=== PATIENT | female | born 1990 | race Caucasian/White ===

== ENCOUNTER 2025-08-15 17:19 | Emergency (ER) | payer OTHER ==
[~2025-08-15] VITALS: Ht 172.7 cm; Wt 102.0 kg
[2025-08-15 17:28] VITALS: O2SAT 99
[2025-08-15] MEDS: ONDANSETRON HCL 4MG/2ML INJ IV ONE (18:00)
[2025-08-15] MEDS: SODIUM CHLORIDE 0.9% 1,000 ML IV ONE ×2 (18:00→21:07)
[2025-08-15] MEDS: ACETAMINOPHEN 500MG TABLET PO ONE (18:00)
[2025-08-15 18:14] LABS: HEMATOCRIT. 41.1 % (36.0-48.0); HEMOGLOBIN. 13.7 g/dL (12.0-16.0); MEAN PLATELET VOLUME 9.7 fl (7.4-10.4); PLATELET 190 x1000/uL (130-400); RED BLOOD CELL COUNT 4.54 mill/uL (4.2-5.4); RED CELL DISTRIBUTION WIDTH 12.4 % (11.6-14.6)
[2025-08-15 18:26] LABS: LYMPHOCYTES % MANUAL 4.0 % (20.0-60.0); MONOCYTES % MANUAL 5.0 % (2.0-8.0); NEUTROPHILS % MANUAL 91.0 % (45.0-75.0)
[2025-08-15 18:27] LABS: INR 1.1; PLATELET ESTIMATE NORMAL
[2025-08-15 18:31] LABS: HCG SCREEN NEGATIVE
[2025-08-15 18:33] LABS: INFLUENZA TYPE A Presumptive Negative (Pres. Neg.)
[2025-08-15 18:34] LABS: INFLUENZA TYPE B Presumptive Negative (Pres. Neg.); RESPIRATORY SYNCYTIAL VIRUS Not Detected (Not Detectd)
[2025-08-15 18:35] LABS: CREATININE 0.9 mg/dL (0.6-1.0)
[2025-08-15 18:36] LABS: PROTEIN TOTAL 7.6 g/dL (6.0-8.3); UREA NITROGEN BLOOD 9 mg/dL (9-23)
[2025-08-15 18:37] LABS: ASPARTATE AMINOTRANSFERASE 16 IU/L (<34)
[2025-08-15 18:38] LABS: BILIRUBIN DIRECT 0.2 mg/dL (<=3.0); BILIRUBIN TOTAL 0.6 mg/dL (0.1-1.0)
[2025-08-15 18:43] VITALS: TEMP 99.6
[2025-08-15] MEDS: MAGNESIUM 2 G PREMIX 50 ML IV ONE (19:56)
[2025-08-15 20:22] LABS: CLARITY URINE CLEAR (CLEAR); COLOR URINE YELLOW (YELLOW); GLUCOSE URINE NEGATIVE (NEGATIVE); KETONES URINE 4+ (NEGATIVE); LEUKOCYTE ESTERASE URINE NEGATIVE (NEGATIVE); NITRITE URINE NEGATIVE (NEGATIVE); OCCULT BLOOD URINE NEGATIVE (NEGATIVE); PH URINE 6.5 (4.5-8.0); PROTEIN URINE 1+ (NEGATIVE); SPECIFIC GRAVITY URINE 1.031 (1.005-1.030); UROBILINOGEN URINE 1.0 E.U./dL (0.2-1.0)
[2025-08-15 20:50] LABS: BACTERIA URINE 2+; RBC URINE 0-2 /hpf (0-2); SQUAMOUS EPITHELIAL CELL URINE FEW /lpf (RARE/1+); WBC URINE 0-2 /hpf (0-2)
[2025-08-15] MEDS: ACETAMINOPHEN 325MG TABLET PO ONE (21:12)
[2025-08-15] MEDS: ACETAMINOPHEN 500MG TABLET PO NR (21:14)
[2025-08-15] MEDS ORDERED: ONDA-239 PO (21:33)
[2025-08-15] MEDS ORDERED: CEFP100T9 MT (21:33)
[2025-08-15 22:13] VITALS: BP 104/60; PULSE 97; RESP 18; O2SAT 100
== END 2025-08-15 22:16 | disposition home or self-care (01) ==
LOC: ER 17:19 → CMPBEDREQ 08-16 07:33
DX: K52.9 Noninfective gastroenteritis and colitis, unspecified (principal); N39.0 Urinary tract infection, site not specified; R11.2 Nausea with vomiting, unspecified; Z20.822 Contact with and (suspected) exposure to COVID-19
CPT/HCPCS: 99285; 74176; 96365; 96361; 96375; 87426; 80076; 80048; 81003; 84703; 83690; 83735; 85025; 85610; 87420; 87804 ×2; 36415; 93005; J3475; J2405; J7030